=== PATIENT | female | born 1945 | race Caucasian/White ===

== ENCOUNTER 2019-07-15 10:14 | Day surgery (SDC) | payer MEDICARE, OTHER ==
[~2019-07-15] VITALS: Ht 157.5 cm; Wt 60.3 kg
--- NOTE | 2019-07-15 11:15 | NUR ---
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 READING BOOK IN LOBBY, DENIES NEEDS.
[2019-07-15] MEDS ORDERED: PROGESTERONE100 M1 PO (12:17)
[2019-07-15] MEDS ORDERED: THYROID30 MG PO (12:21)
[2019-07-15] MEDS ORDERED: [UNRECOGNIZED DRUG - OTHER] PO (12:23)
[2019-07-15] MEDS ORDERED: CENTRUM SILVER1 EAC2 PO (12:23)
[2019-07-15] MEDS ORDERED: CAL-MAG TABLET1 EACH PO (12:24)
[2019-07-15] MEDS ORDERED: POTASSIUM600 MG PO (12:25)
[2019-07-15] MEDS ORDERED: ERGO50000 PO (12:25)
[2019-07-15] MEDS ORDERED: HAIR, SKIN AND1 EAC3 PO (12:25)
[2019-07-15] MEDS ORDERED: FOLBIC RF TABL1 EACH PO (12:25)
[2019-07-15] MEDS ORDERED: OSTEO BI-FLEX1 EAC2 PO (12:26)
== END 2019-07-15 14:20 | disposition home or self-care (01) ==
LOC: ORSCSDS 10:14 → ORD 07-21 15:00
PROVIDERS: Obstetrics & Gynecology
PROC: 0UDB8ZX Extraction of Endometrium, Via Natural or Artificial Opening Endoscopic, Diagnostic (ICD-10-PCS; principal; 2019-07-15 11:30)
DX: N95.0 Postmenopausal bleeding (principal); N84.0 Polyp of corpus uteri; E03.9 Hypothyroidism, unspecified; Z79.899 Other long term (current) drug therapy
CPT/HCPCS: 88305; J0690; J1100; J1885; J2405; J2704; J3010; J7120

== ENCOUNTER 2020-06-23 05:27 | Emergency (ER) | payer MEDICARE, OTHER ==
[~2020-06-23] VITALS: Ht 157.5 cm; Wt 61.2 kg
[~2020-06-23 05:27] MED LIST: CAL-MAG TABLET1 EACH PO; CENTRUM SILVER1 EAC2 PO; ERGO50000 PO; FOLBIC RF TABL1 EACH PO; HAIR, SKIN AND1 EAC3 PO; OSTEO BI-FLEX1 EAC2 PO; POTASSIUM600 MG PO; PROGESTERONE100 M1 PO; THYROID30 MG PO; [UNRECOGNIZED DRUG - OTHER] PO
[2020-06-23] MEDS ORDERED: METPRE4DP PO (07:36)
[2020-06-23] MEDS ORDERED: OXYACE7.5T PO (07:36)
== END 2020-06-23 08:15 | disposition home or self-care (01) ==
LOC: ER 05:27
DX: M54.17 Radiculopathy, lumbosacral region (principal); M54.41 Lumbago with sciatica, right side; Z79.899 Other long term (current) drug therapy
CPT/HCPCS: 96372; 99283-25; A9270; J1170; J7512

== ENCOUNTER 2023-11-26 08:59 | Day surgery (SDC) | payer MEDICARE, OTHER ==
[~2023-11-26] VITALS: Ht 157.5 cm; Wt 64.7 kg
[~2023-11-26 08:59] MED LIST changes: +Balanced Salt Epinephrine Irrigation Solution 500 mL IR SCH; +Lidocaine HCl/Pf 1% 5 ML VIAL XX SCH; +METPRE4DP PO; +Moxifloxacin HCL 0.5 MG/0.1 ML 0.4MLSYR RIGHTEYE SCH; +NS 500 ML IV ONE; +OXYACE7.5T PO; +PHENYLEPHRINE\\TROPICAMIDE\\TETRACAINE OPHTHALMIC DILATING SOLN RIGHTEYE PRN; +Povidone-Iodine 450 DROP/30 ML Solution ONE; +Povidone-Iodine 450 DROP/30 ML Solution RIGHTEYE SCH; +Tetracaine HCl/Pf 0.5% Opth Soln 4 ml ONE; +Triamcinolone Inj Susp 40 MG / ML 1ML Vial INJ SCH; +Triamcinolone Inj Susp 40 MG / ML 1ML Vial ONE
[2023-11-26] MEDS ORDERED: Diazepam 5 MG Tab ONE (09:52)
[2023-11-26] MEDS ORDERED: NS 500 ML IV ONE (09:58)
[2023-11-26 10:35] VITALS: BP 139/76
== END 2023-11-26 10:55 | disposition home or self-care (01) ==
LOC: ORSCSDS 08:59
PROVIDERS: Ophthalmology
PROC: 08RJ3JZ Replacement of Right Lens with Synthetic Substitute, Percutaneous Approach (ICD-10-PCS; principal; 2023-11-26 10:30)
DX: H25.813 Combined forms of age-related cataract, bilateral (principal); Z79.899 Other long term (current) drug therapy
CPT/HCPCS: A9270; J3301; J7040; V2632

== ENCOUNTER 2023-12-10 06:27 | Day surgery (SDC) | payer MEDICARE, OTHER ==
[~2023-12-10] VITALS: Ht 157.5 cm; Wt 64.6 kg
[~2023-12-10 06:27] MED LIST changes: +Moxifloxacin HCL 0.5 MG/0.1 ML 0.4MLSYR LEFTEYE SCH; -Moxifloxacin HCL 0.5 MG/0.1 ML 0.4MLSYR RIGHTEYE SCH; +PHENYLEPHRINE\\TROPICAMIDE\\TETRACAINE OPHTHALMIC DILATING SOLN LEFTEYE PRN; -PHENYLEPHRINE\\TROPICAMIDE\\TETRACAINE OPHTHALMIC DILATING SOLN RIGHTEYE PRN; +Povidone-Iodine 450 DROP/30 ML Solution LEFTEYE SCH; -Povidone-Iodine 450 DROP/30 ML Solution RIGHTEYE SCH; -Triamcinolone Inj Susp 40 MG / ML 1ML Vial ONE
[2023-12-10] MEDS ORDERED: Lactated Ringer's 1,000 ML IV ONE (07:01)
[2023-12-10] MEDS ORDERED: Lidocaine HCl/Pf 1% 5 ML VIAL ONE (07:19)
[2023-12-10] MEDS ORDERED: Triamcinolone Inj Susp 40 MG / ML 1ML Vial ONE (07:19)
[2023-12-10] MEDS ORDERED: Midazolam HCl 1MG / ML 2ML Vial ONE (07:53)
[2023-12-10] MEDS ORDERED: Tetracaine HCl 0.5% Opth Soln 15 ml LEFTEYE ONE (07:57)
[2023-12-10 08:20] VITALS: BP 153/78
--- NOTE | 2023-12-10 13:51 | NUR ---
12/10/23 1351 Ramon Rush, FLUIDS CHARTED INCORRECTLY. FLUIDS STARTED WAS NS500 AT PRE-OP, NOT LR.
== END 2023-12-10 08:31 | disposition home or self-care (01) ==
LOC: ORSCSDS 06:27
PROVIDERS: Ophthalmology
PROC: 08RK3JZ Replacement of Left Lens with Synthetic Substitute, Percutaneous Approach (ICD-10-PCS; principal; 2023-12-10 08:00)
DX: H25.812 Combined forms of age-related cataract, left eye (principal); Z96.1 Presence of intraocular lens; Z79.899 Other long term (current) drug therapy
CPT/HCPCS: J2003; J2250; J3301; J7040; J7120; V2632

== ENCOUNTER → 2025-01-18 | Outpatient (CLI) | payer MEDICARE ==
[~2025-01-18] MED LIST changes: -Balanced Salt Epinephrine Irrigation Solution 500 mL IR SCH; -Lidocaine HCl/Pf 1% 5 ML VIAL XX SCH; -Moxifloxacin HCL 0.5 MG/0.1 ML 0.4MLSYR LEFTEYE SCH; -NS 500 ML IV ONE; -PHENYLEPHRINE\\TROPICAMIDE\\TETRACAINE OPHTHALMIC DILATING SOLN LEFTEYE PRN; -Povidone-Iodine 450 DROP/30 ML Solution LEFTEYE SCH; -Povidone-Iodine 450 DROP/30 ML Solution ONE; -Tetracaine HCl/Pf 0.5% Opth Soln 4 ml ONE; -Triamcinolone Inj Susp 40 MG / ML 1ML Vial INJ SCH
== END | disposition home or self-care (01) ==
LOC: LAB 14:20 → LAB SHORT 14:20
PROVIDERS: Family Medicine
DX: Z12.4 Encounter for screening for malignant neoplasm of cervix (principal)
CPT/HCPCS: 87624; G0145

== ENCOUNTER → 2025-01-24 | Outpatient (CLI) | payer MEDICARE | END | disposition home or self-care (01) | LOC: LAB SHORT 10:52 → LAB 10:52 | DX: L82.1 Other seborrheic keratosis (principal) | CPT/HCPCS: 88305 ==